=== PATIENT | female | born 1995 | race Caucasian/White ===

== ENCOUNTER → 2024-10-01 09:33 | Outpatient (CLI) | payer OTHER, SELFPAY ==
[2024-10-01 10:42] LABS: Hemoglobin A1C% w Est Avg Glu 4.8 % (4.0-6.0)
[2024-10-01 10:49] LABS: Alanine Aminotransferase 19 IU/L (<35); Albumin 4.8 g/dL (3.5-5.0); Albumin Globulin Ratio 1.7 (1.0-2.8); Alkaline Phosphatase 61 U/L (38-126); Aspartate Aminotransferase 22 IU/L (14-36); BUN Creatinine Ratio 13.7 (6-22); Bilirubin Total 0.6 mg/dL (0.2-1.3); Blood Urea Nitrogen 10 mg/dL (7-17); Calcium 10.2 mg/dL (8.4-10.2); Carbon Dioxide 22 mmol/L (22-32); Chloride 105 mmol/L (98-107); Cholesterol 213 mg/dL (140-199); Estimated Glomerular Filt Rate > 60 mL/min (>60); Globulin 2.9 g/dL (1.7-4.1); Glucose 87 mg/dL (70-99); HDL Cholesterol 53 mg/dL (40-60); HEMOLYSIS < 15 (0-50); LDL Cholesterol Calculated 102 mg/dL (<100); Potassium 4.4 mmol/L (3.4-5.1); Sodium 139 mmol/L (137-145); Total Protein 7.7 g/dL (6.3-8.2); Triglycerides 288 mg/dL (35-150)
[2024-10-01 10:58] LABS: NT-proBNP (BNP-Adult 18+) 59 pg/mL (<125)
== END ==
PROVIDERS: PCP Family Medicine; Referring Provider Family Medicine; Visit Provider Family Medicine
DX: M79.89 Other specified soft tissue disorders (principal); F10.91 Alcohol use, unspecified, in remission; Z13.220 Encounter for screening for lipoid disorders; Z13.1 Encounter for screening for diabetes mellitus
CPT/HCPCS: 36415; 80053; 80061; 83036; 83880

== ENCOUNTER → 2024-11-09 07:16 | Outpatient (CLI) | payer OTHER, SELFPAY ==
--- NOTE | 2024-11-09 07:17 | DI.US.S_ITS ---
PROCEDURE: US PELVIC COMPLETE INDICATIONS: IUD placement TECHNIQUE: Real-time scanning was performed of the pelvic organs, with image documentation. Additional endovaginal scanning was necessary due to incomplete visualization of the adnexal and endometrial structures by transabdominal scanning. COMPARISON: None. FINDINGS: Uterus: Uterus is anteverted and normal in size at 7.1 x 3.5 x 3.5 cm. The myometrium is homogeneous. The endometrium measures 7.7 mm combined thickness. IUD appears appropriately positioned within the endometrium. Ovaries: The right ovary measures 1.8 x 1.3 x 2.8 cm, with a calculated ovarian volume of 4 cc. The left ovary measures 2.9 x 3.1 x 2.4 cm, with a calculated ovarian volume of 11 cc. The ovaries have a normal sonographic appearance. Less than 12 follicles can be seen in each ovary. No adnexal masses are seen. IUD appears appropriately positioned within the endometrium. Suspected degenerating left corpus luteum with hemorrhagic contents. Other: No pathologic free abdominal or pelvic fluid. IMPRESSION: IUD appears appropriately positioned within the endometrium. We strive to produce accurate, complete, and clear reports of imaging services. To assist us in improving patient care, this report was composed using standard report templates and voice recognition software. Therefore, it may contain abnormal punctuation, insertions and/or omissions. Occasional wrong-word or sound-alike substitutions may occur. Though we review the report and make efforts to correct it, we do recommend that the report be read carefully in proper context to recognize any text inaccuracies. Dictated by: Sean Mayer M.D. on 11/09/2024 at 10:12 Approved by: Sean Mayer M.D. on 11/09/2024 at 10:14
== END ==
LOC: US 07:17
PROVIDERS: PCP Family Medicine; Referring Provider Family Medicine; Visit Provider Family Medicine
DX: T83.9XXA Unspecified complication of genitourinary prosthetic device, implant and graft, initial encounter (principal)
CPT/HCPCS: 76830; 76856